=== PATIENT | female | born 1975 | race Caucasian/White ===

== ENCOUNTER 2016-07-03 15:28 | Inpatient (IN) | payer MEDICAID ==
[~2016-07-03] VITALS: Ht 162.6 cm; Wt 97.0 kg
[~2016-07-03 15:28] MED LIST: FER325 PO; GLIP-95 PO; METF500T4 PO
[2016-07-03 15:49] VITALS: Ht 162.6 cm; Wt 97.0 kg
[2016-07-03] MEDS ORDERED: SOD CHLORIDE 0.9% 1,000 ML IV STA (20:55)
[2016-07-03] MEDS ORDERED: FAMOTIDINE 20 MG INJ IV STA (20:55)
[2016-07-03] MEDS ORDERED: METF-388 PO (21:11)
[2016-07-03 21:46] LABS: ADD UMIC YES; URINE BILIRUBIN (Dip) NEGATIVE (NEGATIVE); URINE BLOOD (Dip) 2+ (NEGATIVE); URINE COLOR LT. YELLOW (YELLOW); URINE KETONES (Dip) TRACE (NEGATIVE); URINE LEUKOCYTE ESTERASE (Dip) NEGATIVE (NEGATIVE); URINE NITRITE (Dip) NEGATIVE (NEGATIVE); URINE TOTAL PROTEIN (Dip) NEGATIVE (NEGATIVE); URINE UROBILINOGEN (Dip) 0.2 E.U./dL (0.1-1.0)
[2016-07-03 21:49] LABS: CHLORIDE 103 mmol/L (97-110)
[2016-07-03 21:50] LABS: ALBUMIN 4.3 g/dl (3.3-4.9); POTASSIUM 3.7 mmol/L (3.5-5.1); SODIUM 140 mmol/L (135-144)
[2016-07-03 21:52] LABS: CREATININE 0.53 mg/dl (0.44-1.00)
[2016-07-03 21:53] LABS: ALANINE AMINOTRANSFERASE 9 IU/L (13-69); ALBUMIN/GLOBULIN RATIO 1.26; ALKALINE PHOSPHATASE 67 IU/L (42-121); ANION GAP 18 (8-16); ASPARTATE AMINO TRANSFERASE 21 IU/L (15-46); BILIRUBIN,INDIRECT 0.6 mg/dl (0-1.1); BILIRUBIN,TOTAL 0.6 mg/dl (0.2-1.3); BLOOD UREA NITROGEN 11 mg/dl (7-20); CALCIUM 8.7 mg/dl (8.4-10.2); CARBON DIOXIDE 23 mmol/L (21-31); GLUCOSE 218 mg/dl (70-220); TOTAL PROTEIN 7.7 g/dl (6.1-8.1)
[2016-07-03 21:55] LABS: HEMATOCRIT 21.2 % (37.0-47.0); MEAN CORPUSCULAR HEMOGLOBIN 14.3 pg (29.0-33.0); MEAN CORPUSCULAR HGB CONC 26.6 g/dl (32.0-37.0); MEAN CORPUSCULAR VOLUME 53.8 fl (82.0-101.0); MEAN PLATELET VOLUME 9.4 fl (7.4-10.4); PLATELET COUNT 412 10^3/UL (140-440); RED BLOOD COUNT 3.93 10^6/ul (4.20-5.40); RED CELL DISTRIBUTION WIDTH 24.7 % (11.5-14.5)
[2016-07-03 21:56] LABS: INR 1.07; PROTIME 13.9 Sec (12.2-14.2); PT RATIO 1.1
[2016-07-03 21:57] LABS: PARTIAL THROMBOPLASTIN TIME 26.8 Sec (25.0-35.0)
[2016-07-03 21:58] LABS: CONDITION 1; HEMOGLOBIN 5.6 g/dl (12.0-16.0); LH ANALYZER COMMENTS 1; SUSPECT 1
[2016-07-03 22:06] LABS: BACTERIA,URINE FEW; SQUAMOUS EPITHELIAL CELL,UR MODERATE
[2016-07-03 22:09] LABS: TROPONIN-I < 0.010 ng/ml (0.00-0.12)
[2016-07-03 22:31] LABS: BASOPHIL # 0.1 10^3/ul (0.0-0.1); EOSINOPHILS # 0.3 10^3/ul (0.0-0.5); LYMPHOCYTES # 2.3 10^3/ul (0.8-2.9); MONOCYTE # 0.6 10^3/ul (0.3-0.9); NEUTROPHIL # 5.8 10^3/ul (1.6-7.5)
[2016-07-03] MEDS ORDERED: ONDANSETRON 4 MG INJ IV PRN (23:30)
[2016-07-03] MEDS ORDERED: ACETAMINOPHEN 325 MG TAB PO PRN (23:30)
[2016-07-03 23:47] LABS: IRON 16 ug/dl (35-150)
[2016-07-03 23:57] LABS: TOTAL IRON BINDING CAPACITY 384 ug/dl (241-421)
[2016-07-04 00:44] LABS: RETICULOCYTE COUNT % 2.7 % (0.5-1.5)
--- NOTE | 2016-07-04 01:20 | ERA ---
ER Documentation Chief Complaint Date/Time DATE: 07/04/16 TIME: : Chief Complaint low hemoglobin 5.7 HPI This 40-year-old female comes emergency room after she was told to come in for low hemoglobin. She has been feeling generalized weakness, extra tired, and kind of dizzy. Denies nausea vomiting fevers and chills or any abdominal pain. Denies any black stools or rectal bleeding. Has not vomited blood or had heavy periods. I reviewed her EMR from her last visit one year ago for blood loss anemia and according her discharge summary there was no clear etiology of her anemia mentioned at that time. ROS All systems reviewed and are negative except as per history of present illness. Medications Home Meds Reported Medications Metformin Hcl* (Metformin Hcl*) 1,000 Mg Tablet, 1000 MG PO WITH BREAKFAST DINNE , #30 TAB 07/03/16 Discontinued Reported Medications Glipizide* (Glipizide*) 10 Mg Tablet, 10 MG PO BID, TAB 03/22/15 Metformin* (Glucophage*) 500 Mg Tab, 500 MG PO BID, TAB 03/22/15 Discontinued Scripts Ferrous Sulfate* (Ferrous Sulfate*) 325 Mg Tabec, 325 MG PO TID for 30 Days Prov:MEHNAZ PRUITT [employer]ACT[employer] PROFESSIONAL 03/24/15 Allergies Allergies: Coded Allergies: No Known Drug Allergy (Verified Allergy, Unknown, 07/03/16) PMhx/Soc History of Surgery: Yes ( X5 , TUBAL LIGATION ) Anesthesia Reaction: No Hx Neurological Disorder: Yes Hx Respiratory Disorders: No Hx Cardiac Disorders: No Hx Psychiatric Problems: No Hx Miscellaneous Medical Probl: Yes (ANEMIA ) Hx Alcohol Use: No Hx Substance Use: No Hx Tobacco Use: No Smoking Status: Never smoker Physical Exam Vitals Vital Signs Date Time Temp Pulse Resp B/P Pulse Ox O2 Delivery O2 Flow Rate FiO2 07/03/16 21:11 98.2 101 20 126/88 100 Room Air 07/03/16 15:49 98.0 98 20 128/66 100 Physical Exam Const: [] Mild distress, appears uncomfortable Head: Atraumatic Eyes: Normal Conjunctiva ENT: Normal External Ears, Nose and Mouth. Neck: Full range of motion..~ No meningismus. Resp: Clear to auscultation bilaterally Cardio: Regular rate and rhythm, no murmurs Abd: Soft, non tender, non distended. Normal bowel sounds Skin: No petechiae or rashes Back: No midline or flank tenderness Ext: No cyanosis, or edema Neur: Awake and alert oriented 3, cranial nerves II through XII intact, no focal deficits Psych: Normal Mood and Affect Result Diagram: 07/03/16202907/03/162029 Results 24 hrs Laboratory Tests Test 07/03/16 20:30 Absolute Reticulocyte Count 0.107X10^6 Activated Partial Thromboplast Time 26.8Sec Alanine Aminotransferase (ALT/SGPT) 9IU/L Albumin 4.3g/dl Albumin/Globulin Ratio 1.26 Alkaline Phosphatase 67IU/L Anion Gap 18 Aspartate Amino Transf (AST/SGOT) 21IU/L Basophils # 0.110^3/ul Basophils % 1.0% Blood Morphology Comment Blood Urea Nitrogen 11mg/dl Calcium Level 8.7mg/dl Carbon Dioxide Level 23mmol/L Chloride Level 103mmol/L Creatinine 0.53mg/dl Differential Comment Direct Bilirubin 0.00mg/dl Eosinophils # 0.310^3/ul Eosinophils % 3.0% Ferritin 3.3ng/ml Globulin 3.40g/dl Glucose Level 218mg/dl Hematocrit 21.2% Hemoglobin 5.6g/dl INR International Normalized Ratio 1.07 Indirect Bilirubin 0.6mg/dl Iron Level 16ug/dl Lactate Dehydrogenase 416IU/L Lymphocytes # 2.310^3/ul Lymphocytes % 25.0% Mean Corpuscular Hemoglobin 14.3pg Mean Corpuscular Hemoglobin Concent 26.6g/dl Mean Corpuscular Volume 53.8fl Mean Platelet Volume 9.4fl Monocytes # 0.610^3/ul Monocytes % 7.0% Neutrophils # 5.810^3/ul Neutrophils % 64.0% Nucleated Red Blood Cells # 10^3/ul Nucleated Red Blood Cells % /100WBC Percent Iron Saturation 4% SAT Percent Reticulocyte Count 2.7% Platelet Count 14586^3/UL Potassium Level 3.7mmol/L Prothrombin Time 13.9Sec Prothrombin Time Ratio 1.1 Red Blood Count 3.9310^6/ul Red Cell Distribution Width 24.7% Sodium Level 140mmol/L Total Bilirubin 0.6mg/dl Total Iron Binding Capacity 384ug/dl Total Protein 7.7g/dl Troponin I < 0.010ng/ml Urine Bacteria FEW Urine Bilirubin NEGATIVE Urine Clarity CLEAR Urine Color LT. YELLOW Urine Glucose 0.5%% Urine Hemoglobin 2+ Urine Ketones TRACE Urine Leukocyte Esterase NEGATIVE Urine Microscopic RBC 10-25/HPF Urine Microscopic WBC 0-2/HPF Urine Nitrite NEGATIVE Urine Specific [place] >=1.030 Urine Squamous Epithelial Cells MODERATE Urine Total Protein NEGATIVE Urine Urobilinogen 0.2 E.U./dL Urine pH 6.0 White Blood Count 9.010^3/ul Current Medications Medications (Trade) Dose Ordered Sig/Cat Route PRN Reason Start Time Stop Time Status Last Admin Dose Admin Sodium Chloride (NS) 1,000 ml @ 1,000 mls/hr Q1H STAT IV 07/03/16 20:55 07/03/16 21:54 DC 07/03/16 21:23 Famotidine (Pepcid Iv) 20 mg ONCE STAT IV 07/03/16 20:55 07/03/16 21:04 DC 07/03/16 21:23 Ondansetron HCl (Zofran Inj) 4 mg BRIDGE ORDER PRN IV NAUSEA AND/OR VOMITING 07/03/16 23:30 07/04/16 23:29 Acetaminophen (Tylenol Tab) 650 mg ER BRIDGE PRN PO MILD PAIN/FEVER 07/03/16 23:30 07/04/16 23:29 07/04/16 00:52 Procedures/MDM Patient with severe anemia of unknown etiology.. Is given a liter of IV fluid in the emergency room and one hemoglobin returned 5.6 blood products were ordered and initiated. [place] ordered iron studies including lactate dehydrogenase and reticulocyte count to workup the etiology of her severe anemia. She's also given Pepcid 20 mg IV. She's being admitted for a GI workup and a workup of other causes of her severe anemia. Blood products administration was begun in the emergency room. A checked and the patient several times and there appears to be no transfusion reactions. No signs of fluid overload. Spoke with Dr. Kline who getting the patient to [facility]. Critical care time 37 minutes: This occurs management of severe symptomatic anemia, careful fluid administration to avoid volume overload, blood product administration, chart review, multiple visits the patient's bedside assess status before and after transfusion, discussion with admitting doctor and patient. This does not include any billable procedures EKG interpretation: Normal sinus rhythm rate of 91, normal axis, no ST or T- wave changes concerning for acute ischemia. special procedure technologist interpretation: Normal sinus rhythm with occasional sinus tachycardia no arrhythmias Departure Diagnosis: Primary Impression: Severe anemia Additional Impressions: Symptomatic anemia Generalized weakness Condition: Serious KEVON RODRIGUEZ DO Jul 04, 2016 01:20
[2016-07-04] MEDS ORDERED: morphine 2 MG INJ IV PRN (07:30)
[2016-07-04] MEDS ORDERED: NACL 0.9% 3 ML SYG IV SCH (07:30)
[2016-07-04] MEDS ORDERED: ONDANSETRON 4 MG INJ IV PRN (07:30)
[2016-07-04] MEDS ORDERED: HYDROCODONE/APAP (5/325) TAB PO PRN (07:30)
--- NOTE | 2016-07-04 08:02 | HP ---
DATE OF ADMISSION: 07/03/2016 TIME: 7 a.m. CHIEF COMPLAINT: Dizziness, fatigue, and headache for the past month. HISTORY OF PRESENT ILLNESS: The patient is a 40-year-old female with a history of symptomatic anemi a felt to be secondary to iron deficiency. The patient was hospitalized here in 2014 for severe ane john. The patient denies any heavy vaginal bleeding, denies any melena, or any aleisha blood in her st ool. She does have a PCP, and she take iron 3 times daily. She states that for the past month she has been feeling tired and has been having headache. She presents to the ED today where she was fou nd to have a hemoglobin of 5.6. She has no other complaints at this time. Of note, she does also h ave a history of bby-llrorjz-dqfqrjqqk diabetes. PAST MEDICAL HISTORY: Qmt-amqiaxd-inkjmesjo diabetes, anemia, felt to be secondary to iron deficien cy. PAST SURGICAL HISTORY: . HOME MEDICATIONS 1. Metformin. 2. Iron. ALLERGIES: NO KNOWN DRUG ALLERGIES. FAMILY HISTORY: Denies. SOCIAL HISTORY: Denies any alcohol, tobacco, or drug abuse. REVIEW OF SYSTEMS: A 12-point review of systems is negative except for that discussed in HPI. PHYSICAL EXAMINATION: VITAL SIGNS: Temperature is 98.9, pulse is 81, respiratory rate 18, BP is 122/70, and saturation 99 % on room air. GENERAL: No acute distress, alert and oriented. HEENT: Normocephalic, atraumatic. LUNGS: Clear to auscultation. CARDIOVASCULAR: Regular rate and rhythm. ABDOMEN: Nondistended, nontender, soft. EXTREMITIES: No clubbing, cyanosis, or edema. LABORATORIES: White count is 9.0, hemoglobin 5.6, platelets are 412, hematocrit 21.2. Chemistry wi thin normal limits except for anion gap is slightly elevated at 18. Iron 16, TIBC is 384, saturatio n is 4, creatinine 3.3, INR is 1.07. UA is within normal limits except for trace ketones, high spec ific gravity. ASSESSMENT AND PLAN: 1. Severe symptomatic anemia. The patient presents with weakness and headache for the past month. The patient has no melena or excessive vaginal bleeding. She presented here in 2014 for a similar presentation. At that time she was diagnosed with anemia secondary to iron deficiency. Note, she d oes take p.o. iron, but iron levels continue be low at this time. Will treat with packed red blood cells and Ferrlecit IV. The patient may benefit from hematology consult which can be placed by the primary team. 2. Ewi-gxfbvgo-ythzbgebb diabetes. Continue home metformin. Will check an A1c. 3. Prophylaxis: SCDs. Dictated By: ELVIA STUART MD BS/RICKY Conf#: [id number] DID#: [id number]
--- NOTE | 2016-07-04 09:40 | CONS ---
Date/Time of Note Date/Time of Note DATE: 07/04/16 TIME: 09:35 Assessment/Plan Assessment/Plan Chief Complaint/Hosp Course ASSESSMENT AND PLAN: 1. profound and Severe symptomatic anemia. PROFOUND IRON DEFICIENCY The patient presents with weakness and headache for the past month. The patient has no melena or excessive vaginal bleeding. She presented here in 2014 for a similar presentation. At that time she was diagnosed with anemia secondary to iron deficiency. Note, she does take p.o. iron, but iron levels continue be low at this time. PRBC and Ferrlecit IV. - LAST ONE START INPT AND CONT OUTPT COMPLETE W-UP OBTAIN HB ELECTROPHORESIS WELL MONITOR BLOOD COUNT CLOSELY OBSERVE FOR BLEEDING AND HEMOLYSIS 2. Izc-jkxokal-begdmvepu diabetes. Continue home metformin. check HB A1c. 3. Prophylaxis: SCDs. Problems: Consultation Date/Type/Reason Admit Date/Time Date of Consultation: Jul 04, 2016 Type of Consultation: HEMEONC Reason for Consultation ANEMIA Referring Provider: YESSICA JERNIGAN of Present Illness The patient is a 40-year-old female with a history of symptomatic anemia felt to be secondary to iron deficiency. The patient was hospitalized here in 2014 for severe anemia. The patient denies any heavy vaginal bleeding, denies any melena, or any aleisha blood in her stool. She does have a PCP, and she take iron 3 times daily. She states that for the past month she has been feeling tired and has been having headache. She presents to the ED today where she was found to have a hemoglobin of 5.6. She has no other complaints at this time. Of note, she does also have a history of bab-lwbkbls-qwfijhrhh diabetes. PAST MEDICAL HISTORY: Nwz-uxjzfsy-apmvspsyb diabetes, anemia, felt to be secondary to iron deficiency. PAST SURGICAL HISTORY: . HOME MEDICATIONS 1. Metformin. 2. Iron. ALLERGIES: NO KNOWN DRUG ALLERGIES. FAMILY HISTORY: Denies. SOCIAL HISTORY: Denies any alcohol, tobacco, or drug abuse. REVIEW OF SYSTEMS: A 12-point review of systems is negative except for that discussed in HPI. Social History Smoking Status: Never smoker Exam/Review of Systems Vital Signs Vitals Vital Signs Date Time Temp Pulse Resp B/P Pulse Ox O2 Delivery O2 Flow Rate FiO2 07/04/16 05:16 98.9 81 18 122/70 99 Room Air Intake and Output 07/03/16 07/03/16 07/04/16 15:00 23:00 07:00 Intake Total 1700 ml Balance 1700 ml Exam PHYSICAL EXAMINATION: GENERAL: No acute distress, alert and oriented. HEENT: Normocephalic, atraumatic. LUNGS: Clear to auscultation. CARDIOVASCULAR: Regular rate and rhythm. ABDOMEN: Nondistended, nontender, soft. EXTREMITIES: No clubbing, cyanosis, or edema. Results Result Diagram: 07/03/16202907/03/162029 Results 24 hrs Laboratory Tests Test 07/03/16 20:30 Absolute Reticulocyte Count 0.107 Activated Partial Thromboplast Time 26.8 Alanine Aminotransferase (ALT/SGPT) 9 L Albumin 4.3 Albumin/Globulin Ratio 1.26 Alkaline Phosphatase 67 Anion Gap 18 H Aspartate Amino Transf (AST/SGOT) 21 Basophils # 0.1 Basophils % 1.0 Blood Morphology Comment Blood Urea Nitrogen 11 Calcium Level 8.7 Carbon Dioxide Level 23 Chloride Level 103 Creatinine 0.53 Differential Comment Direct Bilirubin 0.00 Eosinophils # 0.3 Eosinophils % 3.0 Ferritin 3.3 L Globulin 3.40 H Glucose Level 218 Hematocrit 21.2 #L Hemoglobin 5.6 #*L INR International Normalized Ratio 1.07 Indirect Bilirubin 0.6 Iron Level 16 L Lactate Dehydrogenase 416 Lymphocytes # 2.3 Lymphocytes % 25.0 Mean Corpuscular Hemoglobin 14.3 L Mean Corpuscular Hemoglobin Concent 26.6 L Mean Corpuscular Volume 53.8 L Mean Platelet Volume 9.4 Monocytes # 0.6 Monocytes % 7.0 Neutrophils # 5.8 Neutrophils % 64.0 Nucleated Red Blood Cells # Nucleated Red Blood Cells % Percent Iron Saturation 4 L Percent Reticulocyte Count 2.7 H Platelet Count 412 Potassium Level 3.7 Prothrombin Time 13.9 Prothrombin Time Ratio 1.1 Red Blood Count 3.93 L Red Cell Distribution Width 24.7 #H Sodium Level 140 Total Bilirubin 0.6 Total Iron Binding Capacity 384 Total Protein 7.7 Troponin I < 0.010 Urine Bacteria FEW Urine Bilirubin NEGATIVE Urine Clarity CLEAR Urine Color LT. YELLOW Urine Glucose 0.5% H Urine Hemoglobin 2+ H Urine Ketones TRACE H Urine Leukocyte Esterase NEGATIVE Urine Microscopic RBC 10-25 Urine Microscopic WBC 0-2 Urine Nitrite NEGATIVE Urine Specific [place] >=1.030 H Urine Squamous Epithelial Cells MODERATE Urine Total Protein NEGATIVE Urine Urobilinogen 0.2 E.U./dL Urine pH 6.0 White Blood Count 9.0 Medications Medications Current Medications Ondansetron HCl (Zofran Inj) 4 mg Q6H PRN IV NAUSEA AND/OR VOMITING; Start 07/04 at 07:30; Status UNV Acetaminophen (Tylenol Tab) 650 mg Q6H PRN PO PAIN LEVEL 1-3 OR FEVER; Start at 07:30; Status UNV Acetaminophen/ Hydrocodone Bitart ([place] (5/325)) 1 tab Q6H PRN PO MODERATE PAIN LEVEL 4-6; Start 07/04/16 at 07:30; Status UNV Morphine Sulfate (morphine) 2 mg Q4H PRN IV SEVERE PAIN LEVEL 7-10; Start at 07:30; Status UNV Miscellaneous Information (* Miscellaneous Pharmacy Order) HYPOGLYCEMIA PROTOCOL w... ONCE ONCE XX ; Start 07/04/16 at 07:30; Stop 07/04/16 at 07:31; Status UNV Miscellaneous Information (* Miscellaneous Pharmacy Order) Discontinue Glyburide , Glipizide,... ONCE ONCE XX ; Start 07/04/16 at 07:30; Stop 07/04/16 at 07:31; Status UNV Miscellaneous Information (* Miscellaneous Pharmacy Order) Discontinue all previ... ONCE ONCE XX ; Start 07/04/16 at 07:30; Stop 07/04/16 at 07:31; Status UNV LIANA WEBBER MD Jul 04, 2016 09:40
[2016-07-04] MEDS: INSULIN ASPART [NOVOLOG] 3 ML PEN SC SCH ×4 (12:00→20:32)
[2016-07-04 13:16] VITALS: TEMP 98.9
[2016-07-04] MEDS ORDERED: GLUCAGON 1 MG INJ IM PRN (13:30)
[2016-07-04] MEDS ORDERED: DEXTROSE 50% 50 ML SYRINGE IV PRN ×2 (13:30)
[2016-07-04] MEDS ORDERED: GLUCOSE GEL 15 GRAM TUBE PO PRN ×2 (13:30)
[2016-07-04] MEDS ORDERED: GLUCOSE GEL 15 GRAM TUBE BUCCAL PRN (13:30)
[2016-07-04] MEDS: metFORMIN 500 MG TAB PO SCH ×2 (13:42→17:46)
[2016-07-04 14:19] VITALS: BP 127/75; PULSE 76; RESP 18
--- NOTE | 2016-07-04 16:23 | PN ---
Date/Time of Note Date/Time of Note DATE: 07/04/16 TIME: 16:16 Assessment/Plan VTE Prophylaxis VTE Prophylaxis Intervention: ambulation Lines/Catheters IV Catheter Type (from Nrs): [place] Assessment/Plan Chief Complaint/Hosp Course Assessment and plan 1. Severe symptomatically anemia. Patient was transfuse 2 PRBC. She does state she does follow-up with better but still has some symptomatic headache. Patient also noted to be iron deficient. She did state that she had stopped taking her iron medication for 5 months. Grad Intern is following. We'll continue patient on IV iron. Patient educated about compliance with medication. We'll provide with Fioricet for headache 2. Diabetes. Continue metformin. Follow up on A1c. DVT prophylaxis: Is SCDs Disposition and plan: Follow up on H&H. Continue on iron. Discharge him medically stable and cleared by consultants Discussed plan care of Problems: Subjective 24 Hr Interval Summary Free Text/Dictation States she feels a little bit better. Still has some headache Exam/Review of Systems Vital Signs Vitals Vital Signs Date Time Temp Pulse Resp B/P Pulse Ox O2 Delivery O2 Flow Rate FiO2 07/04/16 14:19 97.8 76 18 127/75 100 Room Air Intake and Output 07/03/16 07/03/16 07/04/16 15:00 23:00 07:00 Intake Total 1700 ml Balance 1700 ml Exam General: No acute signs or symptoms of distress Eyes: pupils equal round, Anicteric sclera Neck: Supple nontender, no JVD Cardiac: S1, S2 auscultated, regular rhythm and rate Pulmonary: No coarse rhonchi or breathing auscultated GI: Abdomen soft nontender nondistended, bowel sounds active Extremities: No edema bilateral lower extremities Skin: Clean dry and intact Neurologic: Alert to person place and time and situation Results Result Diagram: 07/03/16202907/03/162029 Results 24 hrs Laboratory Tests Test 07/03/16 20:30 07/04/16 13:18 Absolute Reticulocyte Count 0.107 Activated Partial Thromboplast Time 26.8 Alanine Aminotransferase (ALT/SGPT) 9 L Albumin 4.3 Albumin/Globulin Ratio 1.26 Alkaline Phosphatase 67 Anion Gap 18 H Aspartate Amino Transf (AST/SGOT) 21 Basophils # 0.1 Basophils % 1.0 Blood Morphology Comment Blood Urea Nitrogen 11 Calcium Level 8.7 Carbon Dioxide Level 23 Chloride Level 103 Creatinine 0.53 Differential Comment Direct Bilirubin 0.00 Eosinophils # 0.3 Eosinophils % 3.0 Ferritin 3.3 L Globulin 3.40 H Glucose Level 218 Hematocrit 21.2 #L Hemoglobin 5.6 #*L INR International Normalized Ratio 1.07 Indirect Bilirubin 0.6 Iron Level 16 L Lactate Dehydrogenase 416 Lymphocytes # 2.3 Lymphocytes % 25.0 Mean Corpuscular Hemoglobin 14.3 L Mean Corpuscular Hemoglobin Concent 26.6 L Mean Corpuscular Volume 53.8 L Mean Platelet Volume 9.4 Monocytes # 0.6 Monocytes % 7.0 Neutrophils # 5.8 Neutrophils % 64.0 Nucleated Red Blood Cells # Nucleated Red Blood Cells % Percent Iron Saturation 4 L Percent Reticulocyte Count 2.7 H Platelet Count 412 Potassium Level 3.7 Prothrombin Time 13.9 Prothrombin Time Ratio 1.1 Red Blood Count 3.93 L Red Cell Distribution Width 24.7 #H Sodium Level 140 Total Bilirubin 0.6 Total Iron Binding Capacity 384 Total Protein 7.7 Troponin I < 0.010 Urine Bacteria FEW Urine Bilirubin NEGATIVE Urine Clarity CLEAR Urine Color LT. YELLOW Urine Glucose 0.5% H Urine Hemoglobin 2+ H Urine Ketones TRACE H Urine Leukocyte Esterase NEGATIVE Urine Microscopic RBC 10-25 Urine Microscopic WBC 0-2 Urine Nitrite NEGATIVE Urine Specific [place] >=1.030 H Urine Squamous Epithelial Cells MODERATE Urine Total Protein NEGATIVE Urine Urobilinogen 0.2 E.U./dL Urine pH 6.0 White Blood Count 9.0 Bedside Glucose 189 Medications Medications Current Medications Ondansetron HCl (Zofran Inj) 4 mg Q6H PRN IV NAUSEA AND/OR VOMITING; Start 07/04 at 07:30 Acetaminophen (Tylenol Tab) 650 mg Q6H PRN PO PAIN LEVEL 1-3 OR FEVER; Start at 07:30 Acetaminophen/ Hydrocodone Bitart ([place] (5/325)) 1 tab Q6H PRN PO MODERATE PAIN LEVEL 4-6; Start 07/04/16 at 07:30 Morphine Sulfate (morphine) 2 mg Q4H PRN IV SEVERE PAIN LEVEL 7-10; Start at 07:30 Miscellaneous Information 1 ea NOTE XX ; Start 07/04/16 at 13:30 Glucose (Glutose) 15 gm Q15M PRN PO DECREASED GLUCOSE; Start 07/04/16 at 13:30 Glucose (Glutose) 22.5 gm Q15M PRN PO DECREASED GLUCOSE; Start 07/04/16 at 13:30 Dextrose (D50w Syringe) 25 ml Q15M PRN IV DECREASED GLUCOSE; Start 07/04/16 at 13:30 Dextrose (D50w Syringe) 50 ml Q15M PRN IV DECREASED GLUCOSE; Start 07/04/16 at 13:30 Glucagon (Glucagen) 1 mg Q15M PRN IM DECREASED GLUCOSE; Start 07/04/16 at 13:30 Glucose (Glutose) 15 gm Q15M PRN BUCCAL DECREASED GLUCOSE; Start 07/04/16 at 13: 30 Acetaminophen/ Butalbital/ Caffeine (Fioricet) 2 tab Q4H PRN PO PAIN; Start 07/04/16 at 16:30 YESSICA JERNIGAN Jul 04, 2016 16:23
[2016-07-04] MEDS ORDERED: ACET/BUTAL/CAFF TAB PO PRN (16:30)
[2016-07-04] MEDS: SOD FERRIC GLUC COMPLX 125 MG in SOD CHLORIDE 0.9% 100 ML IVPB SCH (17:44)
[2016-07-04 19:00] VITALS: BP_DIAS 67
[2016-07-05 06:18] LABS: HEMATOCRIT 24.4 % (37.0-47.0); HEMOGLOBIN 7.1 g/dl (12.0-16.0); MEAN CORPUSCULAR HEMOGLOBIN 17.5 pg (29.0-33.0); MEAN CORPUSCULAR HGB CONC 29.2 g/dl (32.0-37.0); MEAN CORPUSCULAR VOLUME 59.8 fl (82.0-101.0); MEAN PLATELET VOLUME 9.2 fl (7.4-10.4); PLATELET COUNT 333 10^3/UL (140-440); RED BLOOD COUNT 4.08 10^6/ul (4.20-5.40); RED CELL DISTRIBUTION WIDTH 31.2 % (11.5-14.5); UNCORRECTED WBC 6.9 10^3/ul (4.8-10.8); WHITE BLOOD COUNT 6.9 10^3/ul (4.8-10.8)
[2016-07-05 06:35] LABS: CONDITION 1; LH ANALYZER COMMENTS 1; SUSPECT 1
[2016-07-05 06:50] LABS: POTASSIUM 3.7 mmol/L (3.5-5.1)
[2016-07-05 06:53] LABS: CREATININE 0.54 mg/dl (0.44-1.00)
[2016-07-05 06:54] LABS: CALCIUM 8.5 mg/dl (8.4-10.2); CHOL/HDL RATIO 3.5 RATIO; MAGNESIUM 1.7 mg/dl (1.7-2.5); PHOSPHORUS 4.6 mg/dl (2.5-4.9)
[2016-07-05 07:42] VITALS: BP 121/66; RESP 20
[2016-07-05] MEDS: metFORMIN 500 MG TAB PO SCH ×2 (09:29→16:58)
[2016-07-05] MEDS: INSULIN ASPART [NOVOLOG] 3 ML PEN SC SCH ×4 (09:33→20:18)
[2016-07-05 10:18] LABS: EOSINOPHILS # 0.1 10^3/ul (0.0-0.5); LYMPHOCYTES # 1.6 10^3/ul (0.8-2.9); MONOCYTE # 0.5 10^3/ul (0.3-0.9); NEUTROPHIL # 4.6 10^3/ul (1.6-7.5)
[2016-07-05] MEDS: ACETAMINOPHEN 325 MG TAB PO PRN (12:27)
--- NOTE | 2016-07-05 13:13 | CONS ---
Date/Time of Note Date/Time of Note DATE: 07/05/16 TIME: 13:11 Assessment/Plan Assessment/Plan Chief Complaint/Hosp Course ASSESSMENT AND PLAN: 1. profound and Severe symptomatic anemia. PROFOUND IRON DEFICIENCY The patient presents with weakness and headache for the past month. The patient has no melena or excessive vaginal bleeding. She presented here in 2014 for a similar presentation. At that time she was diagnosed with anemia secondary to iron deficiency. Note, she does take p.o. iron, but iron levels continue be low at this time. PRBC and Ferrlecit IV. - LAST ONE START INPT AND CONT OUTPT COMPLETE W-UP OBTAIN HB ELECTROPHORESIS WELL MONITOR BLOOD COUNT CLOSELY OBSERVE FOR BLEEDING AND HEMOLYSIS TRANSFUSE 2 MORE U PRBC TODAY 2. Gvg-wmawjwz-lhaxvzwjn diabetes. Continue home metformin. check HB A1c. 3. Prophylaxis: SCDs. Problems: Consultation Date/Type/Reason Admit Date/Time Jul 03, 2016 at 23:16 Initial Consult Date 07/04/16 Type of Consultation: HEMEONC Referring Provider: YESSICA JERNIGAN 24 HR Interval Summary Free Text/Dictation POST PRBC X 2 U NO ACTIVE BLEEDING COUNT STILL LOW WEAK Exam/Review of Systems Vital Signs Vitals Vital Signs Date Time Temp Pulse Resp B/P Pulse Ox O2 Delivery O2 Flow Rate FiO2 07/05/16 07:42 98.3 78 20 121/66 97 07/04/16 14:19 Room Air Intake and Output 07/04/16 07/04/16 07/05/16 15:00 23:00 07:00 Intake Total 470 ml 240 ml Balance 470 ml 240 ml Exam GENERAL: No acute distress, alert and oriented. HEENT: Normocephalic, atraumatic. LUNGS: Clear to auscultation. CARDIOVASCULAR: Regular rate and rhythm. ABDOMEN: Nondistended, nontender, soft. EXTREMITIES: No clubbing, cyanosis, or edema. Results Result Diagram: 07/05/16 0525 07/05/16 0529 Results 24 hrs Laboratory Tests Test 07/04/16 13:18 07/04/16 17:12 07/04/16 20:32 07/05/16 05:25 Bedside Glucose 189 133 172 Band Neutrophils % 1.0 Blood Morphology Comment Differential Comment MANUAL DIFF Eosinophils # 0.1 Eosinophils % 2.0 Hematocrit 24.4 L Hemoglobin 7.1 #L Lymphocytes # 1.6 Lymphocytes % 23.0 Mean Corpuscular Hemoglobin 17.5 #L Mean Corpuscular Hemoglobin Concent 29.2 L Mean Corpuscular Volume 59.8 L Mean Platelet Volume 9.2 Monocytes # 0.5 Monocytes % 7.0 Neutrophils # 4.6 Neutrophils % 67.0 Nucleated Red Blood Cells # Nucleated Red Blood Cells % Platelet Count 333 Red Blood Count 4.08 L Red Cell Distribution Width 31.2 #H White Blood Count 6.9 # Test 07/05/16 05:29 07/05/16 08:20 07/05/16 12:22 Anion Gap 17 H Blood Urea Nitrogen 7 Calcium Level 8.5 Carbon Dioxide Level 26 Chloride Level 103 Cholesterol Level 70 L Cholesterol/HDL Ratio 3.5 Creatinine 0.54 Glucose Level 111 # HDL Cholesterol 20 L Hemoglobin A1c 7.6 H LDL Cholesterol, Calculated 14 Magnesium Level 1.7 Phosphorus Level 4.6 Potassium Level 3.7 Sodium Level 142 Triglycerides Level 178 H Bedside Glucose 157 185 Medications Medications Current Medications Ondansetron HCl (Zofran Inj) 4 mg Q6H PRN IV NAUSEA AND/OR VOMITING; Start 07/04 at 07:30 Acetaminophen (Tylenol Tab) 650 mg Q6H PRN PO PAIN LEVEL 1-3 OR FEVER Last administered on 07/05/16 12:27; Admin Dose 650 MG; Start 07/04/16 at 07:30 Acetaminophen/ Hydrocodone Bitart ([place] (5/325)) 1 tab Q6H PRN PO MODERATE PAIN LEVEL 4-6 Last administered on 07/04/16 20:31; Admin Dose 1 TAB; Start 07/04 at 07:30 Morphine Sulfate (morphine) 2 mg Q4H PRN IV SEVERE PAIN LEVEL 7-10; Start at 07:30 Miscellaneous Information 1 ea NOTE XX ; Start 07/04/16 at 13:30 Glucose (Glutose) 15 gm Q15M PRN PO DECREASED GLUCOSE; Start 07/04/16 at 13:30 Glucose (Glutose) 22.5 gm Q15M PRN PO DECREASED GLUCOSE; Start 07/04/16 at 13:30 Dextrose (D50w Syringe) 25 ml Q15M PRN IV DECREASED GLUCOSE; Start 07/04/16 at 13:30 Dextrose (D50w Syringe) 50 ml Q15M PRN IV DECREASED GLUCOSE; Start 07/04/16 at 13:30 Glucagon (Glucagen) 1 mg Q15M PRN IM DECREASED GLUCOSE; Start 07/04/16 at 13:30 Glucose (Glutose) 15 gm Q15M PRN BUCCAL DECREASED GLUCOSE; Start 07/04/16 at 13: 30 Acetaminophen/ Butalbital/ Caffeine 2 tab 2 tab Q4H PRN PO PAIN; Start 07/04/16 at 16:30 Ferric Sodium Gluconate Complex/ Sodium Chloride (Ferrlecit/NS) 110 ml @ 110 mls/hr Q24H IVPB Last administered on 07/04/16t 17:44; Admin Dose 110 MLS/HR; Start 07/04/16 at 17:30; Stop 07/08/16 at 18:29 LIANA WEBBER MD Jul 05, 2016 13:12
--- NOTE | 2016-07-05 15:38 | PN ---
Date/Time of Note Date/Time of Note DATE: 07/05/16 TIME: 15:32 Assessment/Plan VTE Prophylaxis VTE Prophylaxis Intervention: ambulation, SCD's Lines/Catheters IV Catheter Type (from Nrsg): Saline Lock Assessment/Plan Chief Complaint/Hosp Course Assessment and plan 1. Severe symptomatically anemia. Patient was transfuse 2 PRBC. She does state she does follow-up with better but still has some symptomatic headache. Patient also noted to be iron deficient. She did state that she had stopped taking her iron medication for 5 months. Ditch Cleaner is following. We'll continue patient on IV iron. Patient educated about compliance with medication. Continue Fioricet for headache. Plan for another transfusion of 2 PRBC 2. Diabetes. Continue metformin. Follow up on A1c. DVT prophylaxis: Is SCDs Disposition and plan: Still with hemoglobin less than 8. Plan for transfusion of 2 PRBC. Discharge him medically stable and cleared by consultants Discussed plan care of Problems: Subjective 24 Hr Interval Summary Free Text/Dictation Resting at this time. Denies any headache at this time Exam/Review of Systems Vital Signs Vitals Vital Signs Date Time Temp Pulse Resp B/P Pulse Ox O2 Delivery O2 Flow Rate FiO2 07/05/16 07:42 98.3 78 20 121/66 97 07/04/16 14:19 Room Air Intake and Output 07/04/16 07/04/16 07/05/16 15:00 23:00 07:00 Intake Total 470 ml 240 ml Balance 470 ml 240 ml Exam General: No acute signs or symptoms of distress Eyes: pupils equal round, Anicteric sclera Neck: Supple nontender, no JVD Cardiac: S1, S2 auscultated, regular rhythm and rate Pulmonary: No coarse rhonchi or breathing auscultated GI: Abdomen soft nontender nondistended, bowel sounds active Extremities: No edema bilateral lower extremities Skin: Clean dry and intact Neurologic: Alert to person place and time and situation Results Result Diagram: 07/05/16 0525 07/05/16 0529 Results 24 hrs Laboratory Tests Test 07/04/16 17:12 07/04/16 20:32 07/05/16 05:25 07/05/16 05:29 Bedside Glucose 133 172 Band Neutrophils % 1.0 Blood Morphology Comment Differential Comment MANUAL DIFF Eosinophils # 0.1 Eosinophils % 2.0 Hematocrit 24.4 L Hemoglobin 7.1 #L Lymphocytes # 1.6 Lymphocytes % 23.0 Mean Corpuscular Hemoglobin 17.5 #L Mean Corpuscular Hemoglobin Concent 29.2 L Mean Corpuscular Volume 59.8 L Mean Platelet Volume 9.2 Monocytes # 0.5 Monocytes % 7.0 Neutrophils # 4.6 Neutrophils % 67.0 Nucleated Red Blood Cells # Nucleated Red Blood Cells % Platelet Count 333 Red Blood Count 4.08 L Red Cell Distribution Width 31.2 #H White Blood Count 6.9 # Anion Gap 17 H Blood Urea Nitrogen 7 Calcium Level 8.5 Carbon Dioxide Level 26 Chloride Level 103 Cholesterol Level 70 L Cholesterol/HDL Ratio 3.5 Creatinine 0.54 Glucose Level 111 # HDL Cholesterol 20 L Hemoglobin A1c 7.6 H LDL Cholesterol, Calculated 14 Magnesium Level 1.7 Phosphorus Level 4.6 Potassium Level 3.7 Sodium Level 142 Triglycerides Level 178 H Test 07/05/16 08:20 07/05/16 12:22 Bedside Glucose 157 185 Medications Medications Current Medications Ondansetron HCl (Zofran Inj) 4 mg Q6H PRN IV NAUSEA AND/OR VOMITING; Start 07/04 at 07:30 Acetaminophen (Tylenol Tab) 650 mg Q6H PRN PO PAIN LEVEL 1-3 OR FEVER Last administered on 07/05/16 12:27; Admin Dose 650 MG; Start 07/04/16 at 07:30 Acetaminophen/ Hydrocodone Bitart ([place] (5/325)) 1 tab Q6H PRN PO MODERATE PAIN LEVEL 4-6 Last administered on 07/04/16 20:31; Admin Dose 1 TAB; Start 07/04 at 07:30 Morphine Sulfate (morphine) 2 mg Q4H PRN IV SEVERE PAIN LEVEL 7-10; Start at 07:30 Miscellaneous Information 1 ea NOTE XX ; Start 07/04/16 at 13:30 Glucose (Glutose) 15 gm Q15M PRN PO DECREASED GLUCOSE; Start 07/04/16 at 13:30 Glucose (Glutose) 22.5 gm Q15M PRN PO DECREASED GLUCOSE; Start 07/04/16 at 13:30 Dextrose (D50w Syringe) 25 ml Q15M PRN IV DECREASED GLUCOSE; Start 07/04/16 at 13:30 Dextrose (D50w Syringe) 50 ml Q15M PRN IV DECREASED GLUCOSE; Start 07/04/16 at 13:30 Glucagon (Glucagen) 1 mg Q15M PRN IM DECREASED GLUCOSE; Start 07/04/16 at 13:30 Glucose (Glutose) 15 gm Q15M PRN BUCCAL DECREASED GLUCOSE; Start 07/04/16 at 13: 30 Acetaminophen/ Butalbital/ Caffeine 2 tab 2 tab Q4H PRN PO PAIN; Start 07/04/16 at 16:30 Ferric Sodium Gluconate Complex/ Sodium Chloride (Ferrlecit/NS) 110 ml @ 110 mls/hr Q24H IVPB Last administered on 07/04/16t 17:44; Admin Dose 110 MLS/HR; Start 07/04/16 at 17:30; Stop 07/08/16 at 18:29 YESSICA JERNIGAN Jul 05, 2016 15:38
[2016-07-05 19:53] VITALS: BP 147/80; RESP 20
[2016-07-05] MEDS: SOD FERRIC GLUC COMPLX 125 MG in SOD CHLORIDE 0.9% 100 ML IVPB SCH (22:15)
[2016-07-06] MEDS: ACETAMINOPHEN 325 MG TAB PO PRN (00:47)
[2016-07-06 05:49] LABS: BASOPHILS % 0.4 % (0.0-2.0); EOSINOPHILS # 0.1 10^3/ul (0.0-0.5); EOSINOPHILS % 1.1 % (0.0-7.0); HEMATOCRIT 28.3 % (37.0-47.0); HEMOGLOBIN 8.5 g/dl (12.0-16.0); LYMPHOCYTES # 1.7 10^3/ul (0.8-2.9); LYMPHOCYTES % 18.7 % (15.0-51.0); MEAN CORPUSCULAR HEMOGLOBIN 19.6 pg (29.0-33.0); MEAN CORPUSCULAR HGB CONC 30.2 g/dl (32.0-37.0); MEAN CORPUSCULAR VOLUME 64.8 fl (82.0-101.0); MEAN PLATELET VOLUME 9.5 fl (7.4-10.4); MONOCYTE # 0.7 10^3/ul (0.3-0.9); MONOCYTES % 7.1 % (0.0-11.0); NEUTROPHIL # 6.8 10^3/ul (1.6-7.5); NEUTROPHILS % 72.7 % (39.0-77.0); PLATELET COUNT 340 10^3/UL (140-440); RED BLOOD COUNT 4.36 10^6/ul (4.20-5.40); RED CELL DISTRIBUTION WIDTH 35.7 % (11.5-14.5); UNCORRECTED WBC 9.4 10^3/ul (4.8-10.8); WHITE BLOOD COUNT 9.4 10^3/ul (4.8-10.8)
[2016-07-06 05:59] LABS: POTASSIUM 3.7 mmol/L (3.5-5.1)
[2016-07-06 06:01] LABS: CREATININE 0.56 mg/dl (0.44-1.00)
[2016-07-06 06:02] LABS: CALCIUM 8.5 mg/dl (8.4-10.2)
[2016-07-06 06:06] LABS: CONDITION 1; LH ANALYZER COMMENTS 1; SUSPECT 1
[2016-07-06 07:36] VITALS: BP 122/74; RESP 20
[2016-07-06] MEDS: INSULIN ASPART [NOVOLOG] 3 ML PEN SC SCH ×3 (07:49→17:23)
[2016-07-06] MEDS: metFORMIN 500 MG TAB PO SCH ×2 (08:07→17:22)
--- NOTE | 2016-07-06 08:50 | PDOCDIS ---
Discharge Instructions DIAGNOSIS Discharge Diagnosis: 1. Iron deficiency anemia 2. cephalgia CONDITION Patient Condition: Stable HOME CARE INSTRUCTIONS: Diet Instructions: Low Fat /CholesterolSpecial Diet: Carb control FOLLOW UP/APPOINTMENTS Appointments 1. Follow up with Dr. Radha John in one week 2. Follow up with your primary care provider in 1-2 weeks YESSICA JERNIGAN Jul 06, 2016 08:50
[2016-07-06] MEDS ORDERED: FER325 PO (08:52)
[2016-07-06] MEDS ORDERED: FIORICET PO (08:52)
[2016-07-06] MEDS ORDERED: SITA25TA3 PO (08:52)
[2016-07-06] MEDS ORDERED: METF-388 PO (08:52)
--- NOTE | 2016-07-06 13:08 | CONS ---
Date/Time of Note Date/Time of Note DATE: 07/06/16 TIME: 13:07 Assessment/Plan Assessment/Plan Chief Complaint/Hosp Course ASSESSMENT AND PLAN: 1. profound and Severe symptomatic anemia. PROFOUND IRON DEFICIENCY The patient presents with weakness and headache for the past month. The patient has no melena or excessive vaginal bleeding. She presented here in 2014 for a similar presentation. At that time she was diagnosed with anemia secondary to iron deficiency. Note, she does take p.o. iron, but iron levels continue be low at this time. PRBC and Ferrlecit IV. - LAST ONE START INPT AND CONT OUTPT COMPLETE W-UP HB ELECTROPHORESIS- P MONITOR BLOOD COUNT CLOSELY OBSERVE FOR BLEEDING AND HEMOLYSIS POST 4 U PRBC F-UP OUTPT 2. Nka-iprcpjl-wonkuwszf diabetes. Continue home metformin. check HB A1c. 3. Prophylaxis: SCDs. Problems: Consultation Date/Type/Reason Admit Date/Time Jul 03, 2016 at 23:16 Initial Consult Date 07/04/16 [facility] Referring Provider: YESSICA JERNIGAN Exam/Review of Systems Vital Signs Vitals Vital Signs Date Time Temp Pulse Resp B/P Pulse Ox O2 Delivery O2 Flow Rate FiO2 07/06/16 07:36 98.1 82 20 122/74 98 07/04/16 14:19 Room Air Intake and Output 07/05/16 07/05/16 07/06/16 15:00 23:00 07:00 Intake Total 1130 ml 710 ml Output Total 700 ml Balance 430 ml 710 ml Results Result Diagram: 07/06/16 0459 07/06/16 0459 Results 24 hrs Laboratory Tests Test 07/05/16 16:54 07/05/16 19:42 07/06/16 04:59 07/06/16 07:47 Bedside Glucose 145 147 125 Anion Gap 16 Basophils # 0.0 Basophils % 0.4 Blood Morphology Comment Blood Urea Nitrogen 10 Calcium Level 8.5 Carbon Dioxide Level 26 Chloride Level 104 Creatinine 0.56 Eosinophils # 0.1 Eosinophils % 1.1 Glucose Level 107 Hematocrit 28.3 L Hemoglobin 8.5 L Lymphocytes # 1.7 Lymphocytes % 18.7 Mean Corpuscular Hemoglobin 19.6 L Mean Corpuscular Hemoglobin Concent 30.2 L Mean Corpuscular Volume 64.8 L Mean Platelet Volume 9.5 Monocytes # 0.7 Monocytes % 7.1 Neutrophils # 6.8 Neutrophils % 72.7 Nucleated Red Blood Cells # 0.0 Nucleated Red Blood Cells % 0.0 Platelet Count 340 Potassium Level 3.7 Red Blood Count 4.36 Red Cell Distribution Width 35.7 H Sodium Level 142 White Blood Count 9.4 # Test 07/06/16 12:08 Bedside Glucose 127 Medications Medications Current Medications Ondansetron HCl (Zofran Inj) 4 mg Q6H PRN IV NAUSEA AND/OR VOMITING; Start 07/04 at 07:30 Acetaminophen (Tylenol Tab) 650 mg Q6H PRN PO PAIN LEVEL 1-3 OR FEVER Last administered on 07/06/16 00:47; Admin Dose 650 MG; Start 07/04/16 at 07:30 Acetaminophen/ Hydrocodone Bitart ([place] (5/325)) 1 tab Q6H PRN PO MODERATE PAIN LEVEL 4-6 Last administered on 07/04/16 20:31; Admin Dose 1 TAB; Start 07/04 at 07:30 Morphine Sulfate (morphine) 2 mg Q4H PRN IV SEVERE PAIN LEVEL 7-10; Start at 07:30 Miscellaneous Information 1 ea NOTE XX ; Start 07/04/16 at 13:30 Glucose (Glutose) 15 gm Q15M PRN PO DECREASED GLUCOSE; Start 07/04/16 at 13:30 Glucose (Glutose) 22.5 gm Q15M PRN PO DECREASED GLUCOSE; Start 07/04/16 at 13:30 Dextrose (D50w Syringe) 25 ml Q15M PRN IV DECREASED GLUCOSE; Start 07/04/16 at 13:30 Dextrose (D50w Syringe) 50 ml Q15M PRN IV DECREASED GLUCOSE; Start 07/04/16 at 13:30 Glucagon (Glucagen) 1 mg Q15M PRN IM DECREASED GLUCOSE; Start 07/04/16 at 13:30 Glucose (Glutose) 15 gm Q15M PRN BUCCAL DECREASED GLUCOSE; Start 07/04/16 at 13: 30 Acetaminophen/ Butalbital/ Caffeine 2 tab 2 tab Q4H PRN PO PAIN; Start 07/04/16 at 16:30 Ferric Sodium Gluconate Complex/ Sodium Chloride (Ferrlecit/NS) 110 ml @ 110 mls/hr Q24H IVPB Last administered on 1/7/17at 22:15; Admin Dose 110 MLS/HR; Start 07/04/16 at 17:30; Stop 07/08/16 at 18:29 LIANA WEBBER MD Jul 06, 2016 13:07
--- NOTE | 2016-07-06 15:52 | DS ---
DATE OF ADMISSION: 07/03/2016 DATE OF DISCHARGE: 07/06/2016 CONSULTANTS: Dr. Radha John. DISCHARGE DIAGNOSES 1. Severe symptomatic anemia secondary to iron deficiency. 2. Type 2 diabetes. 3. Obesity. HOSPITAL COURSE: This is a 40-year-old female with history of symptomatic anemia, who did come to [facility] due to reports of increased fatigue as well as cephalgia. Patient did c ome to the ER and was found to have a hemoglobin of 5.6. She did report that she was prescribed iro n by her primary care provider for her iron deficiency, but for the past 5 months she had stopped ta jorge it due to stressful situations at home. Patient was questioned whether she had any other under lying cause for anemia. She denied any heavy vaginal bleeding or any melena or hematemesis or hemat ochezia. Patient was also seen by electric organ checker, and we did find the patient to be profoundly iron d eficient and did provide the patient with iron supplement. The patient was also transfused packed r ed blood cells to help with her anemia. During her course of stay she did improve. She was instruc leno to continue her iron supplements as instructed. She was also optimized with analgesics for her headache, which did resolve on the day of her discharge. Her anemia had improved, and she was instr ucted to follow up with electric organ checker in a week. The plan of care was discussed with patient, and milind aggarwal did verbalize her understanding. On the day of discharge, the patient was in stable condition . Discharge physical exam and vital signs are stable. CONDITION: Stable. DISCHARGE PLAN 1. Patient to follow up with Dr. Justin John in 1 week. 2. Patient is to take her medications as prescribed. 3. Diet is low fat, low cholesterol, carbohydrate controlled. DISCHARGE MEDICATIONS 1. Fioricet 2 tabs p.o. every 4 hours as needed for pain. 2. Ferrous sulfate 325 mg p.o. t.i.d. 3. Januvia 25 mg p.o. daily. 4. Metformin 1000 mg p.o. b.i.d. DISCHARGE PROCESS TIME: 40 minutes. Discussed plan of care with Dictated By: YESSICA JRENIGAN CHARTER PILOT for LATOSHA BAE MD RR/RICKY Conf#: [id number] [facility]#: [id number]
[2016-07-06] MEDS: SOD FERRIC GLUC COMPLX 125 MG in SOD CHLORIDE 0.9% 100 ML IVPB SCH (16:28)
[2016-07-07 10:41] LABS: HEMATOCRIT 26.4 % (35.0-45.0); HEMOGLOBIN 7.1 g/dL (11.7-15.5); MCH 17.2 pg (27.0-33.0); MCV 63.9 fL (80.0-100.0); RDW 30.5 % (11.0-15.0); RED BLOOD CELL COUNT 4.13 Million/uL (3.80-5.10)
[2016-07-09 08:02] LABS: HEMOGLOBIN A 98.4 % (>96.0); HEMOGLOBIN A2 (QUANT) 1.6 % (1.8-3.5); HEMOGLOBIN F <1.0 % (<2.0)
== END 2016-07-06 18:00 | disposition home or self-care (01) | DRG 812 ==
LOC: E/R 15:28 → MS2 23:16
PROVIDERS: ADMIT Internal Medicine; ATTEND Internal Medicine
PROC: 30233N1 Transfusion of Nonautologous Red Blood Cells into Peripheral Vein, Percutaneous Approach (ICD-10-PCS; principal; 2016-07-04)
DX: D50.9 Iron deficiency anemia, unspecified (principal); E11.9 Type 2 diabetes mellitus without complications; Z79.84 Long term (current) use of oral hypoglycemic drugs; R53.1 Weakness; R51 Headache
CPT/HCPCS: 36430; 80048; 80053; 80061; 81001; 81003; 82728; 82962; 83020; 83036; 83540; 83615; 83735; 84100; 84466; 84484; 85025; 85045; 85610; 85730; 86850; 86900; 86901; 86920; 93005; J1815; J2916; J7030; P9016

== ENCOUNTER 2017-08-25 20:05 | Inpatient (IN) | END 2017-08-28 14:55 | disposition home or self-care (01) | DRG 812 ==

== ENCOUNTER 2018-01-26 19:26 | Inpatient (IN) | END 2018-01-29 13:49 | disposition home or self-care (01) | DRG 812 ==

== ENCOUNTER 2018-06-16 01:27 | Inpatient (IN) | END 2018-06-16 19:27 | disposition home or self-care (01) | DRG 812 ==